=== PATIENT | female | born 1975 | race Two or more races ===

== ENCOUNTER 2018-03-14 17:19 | Emergency (ER) | payer BC ==
[~2018-03-14] VITALS: Ht 165.1 cm; Wt 56.7 kg
[2018-03-14] MEDS ORDERED: predniSONE 20 MG TABLET ONE (18:14)
[2018-03-14] MEDS ORDERED: FAMOTIDINE (20 MG) 20 MG TABLET ONE (18:14)
[2018-03-14] MEDS ORDERED: diphenhydrAMINE HCL 25 MG CAPSULE ONE (18:15)
--- NOTE | 2018-03-14 18:15 | NUR ---
PT REC'D TO ER C/O HIVES ONE DAY ITCHING REDNEDD NOTED MEDS GIVEN PER MD ORDER
--- NOTE | 2018-03-14 18:20 | NUR ---
PT. VERBALIZED UNDERSTANDING OF AFTERCARE INSTRUCTIONS.Patient discharged to home in stable condition. Written and verbal after care instructions given. Patient verbalizes understanding of instruction.
[2018-03-14 18:21] VITALS: BP 126/78
[2018-03-14] MEDS ORDERED: predniSONE 20 MG TABLET PO ONE (18:30)
[2018-03-14] MEDS ORDERED: diphenhydrAMINE HCL 25 MG CAPSULE PO ONE (18:30)
[2018-03-14] MEDS ORDERED: FAMOTIDINE (20 MG) 20 MG TABLET PO ONE (18:30)
== END 2018-03-14 18:23 | disposition home or self-care (01) ==
LOC: ER 17:25
DX: L50.0 Allergic urticaria (principal)
CPT/HCPCS: 99284; A4606; J7512; Q0163; Z7610